=== PATIENT | male | born 1960 | race Caucasian/White ===

== ENCOUNTER 2023-11-23 15:25 | Outpatient (AMB) | payer OTHER, SELFPAY ==
--- NOTE | 2023-11-23 15:36 | A.OFFPC_ITS ---
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 Intake Note: pt is here for physical, denies issues, looking to establish care for medication refills International Operations Manager Required: No Accompanied by: Self / Same As Patient Allergies No Known Allergies Allergy (Verified 11/23/23 15:50) Medication List - Last Reconciled 11/23/23 by MARQUISE Linder amlodipine 10 mg PO DAILY atorvastatin 10 mg PO DAILY tamsulosin 0.4 mg PO DAILY valsartan 80 mg PO DAILY Tobacco use date assessed: 11/23/23 Dental Screening Dental Screen Date: 11/23/23 Did you have a dental visit in the last 12 months?: Yes Did you have a dental problem in the last 6 months where you did not have access to dental care?: No Was dental information given to patient?: Patient has dentist HPI HPI Comments History of Present Illness Details Patient is a 62-year-old male in today to establish care. He is up-to-date with his influenza and COVID booster. Patient is due for colonoscopy but would like to wait on the procedure until after the summer. He has a past medical history significant for BPH, hyperlipidemia and hypertension. He is currently taking amlodipine and valsartan for hypertension. The patient will be sending us his past medical records from [facility]. He has a surgical history of right knee replacement. He has an occupational injury from a work accident 2 years ago where a beam fell on his shoulder tearing his rotator cuff. The patient is being treated by [facility] for this issue, he states he gets occasional left-sided numbness down his arm and headaches, they are conducting an MRI in 5 days. The patient is due for fasting labs, will order. [facility] Medical History (Updated 11/23/23 @ 16:25 by MARQUISE Linder) Benign prostate hyperplasia Hypertension Surgical History (Updated 11/23/23 @ 15:53 by MARQUISE Linder) S/P left rotator cuff repair History of total right knee replacement Family History (Updated 11/23/23 @ 15:55 by MARQUISE Linder) Father No problems noted. Mother No problems noted. Social History (Updated 11/23/23 @ 15:55 by MARQUISE Linder) Housing: House Alcohol intake: current Alcohol intake frequency: a few times a month Alcohol type: beer Comment: 2-3 per week Patient Tobacco Use Status: Never used Tobacco e-Cigarette/Vaping Use: Never Used service: Yes ([employer]) Current occupational status: employed Cognitive needs: No Hearing needs: No Vision needs: Yes Questionnaire PHQ-9 Over the last 2 weeks, how often have you been bothered by any of the following problems? 1. Little interest or pleasure in doing things: not at all 2. Feeling down, depressed, or hopeless: not at all 3. Trouble falling or staying asleep, or sleeping too much: not at all 4. Feeling tired or having little energy: not at all 5. Poor appetite or overeating: not at all 6. Feeling bad about yourself - or that you are a failure or have let yourself or your family down: not at all 7. Trouble concentrating on things, such as reading the newspaper or watching television: not at all 8. Moving or speaking so slowly that other people could have noticed. Or the opposite - being so fidgety or restless that you have been moving around a lot more than usual: not at all 9. Thoughts that you would be better off or of hurting yourself in some way: not at all Total score: 0 Depression Screening Interpretation: Negative Depression Screening Done: Yes 12068 - PHQ-9 Billing: Yes Source: Developed by Drs. Tanmay Lindsay, Mary Glover, Otf Hamilton and colleagues, with an educational kayleigh from [employer]. Thrive Questionnaire Date Thrive assessed: 11/23/23 I am a: Patient What is your living situation today?: I have a steady place to live Within the past 12 months, did the food you bought not last and you didn't have the money to get more?: Never true Within the past 12 months, did you worry whether your food would run out before you got money to buy more?: Never true Do you have trouble paying for medicines?: No Do you have trouble getting transportation to medical appointments?: No Do you have trouble paying your heating and electricity bill?: No Do you have trouble taking care of your child, family member or friend?: No Do you have trouble with day-to-day activities such as bathing, preparing meals, shopping, managing finances, etc.?: No Are you currently unemployed and looking for a job?: No Are you interested in more education?: No Please select the resources that you would like help with: None Currently or been in a relationship where the following occur: no concerns reported THRIVE Score: 0 AUDIT C Alcohol Use Questionnaire (AUDIT-C) 1. How often do you have a drink containing alcohol?: 2-4 times a month 2. How many drinks containing alcohol do you have on a typical day when you are drinking?: 1 or 2 3. How often do you have six or more drinks on one occasion?: Never Total Score: 2 Score Reviewed/Action Taken: Yes TITUS-7 AMB Questionnaire TITUS-7 Date TITUS - 7 assessed: 11/23/23 Feeling nervous, anxious, or on edge: 0 = Not at all Not being able to stop or control worryin = Not at all Worrying too much about different things: 0 = Not at all Trouble relaxin = Not at all Being so restless that it is hard to sit still: 0 = Not at all Becoming easily annoyed or irritable: 0 = Not at all Feeling afraid as if something awful might happen: 0 = Not at all Total TITUS-7 score (0-4 normal; 5-9 mild; 10-14 moderate; 15-21 severe): 0 Source: Developed by Drs. Tanmay Lindsay, Mary Glover, Otf Hamilton and colleagues, with an educational kayleigh from [employer]. TITUS-7 Assessment Billing TITUS-7 Assessment Tool: TITUS-7 Assessment 96789 Review of Systems Const Details: Constitutional : No Weight loss, No Fever, No Chills, No Fatigue, No Malaise ENT/Mouth : No sore throat, No Rhinorrhea Eyes: No Eye Pain, No Swelling, No Redness Cardiovascular : No Chest Pain, No SOB, No Dyspnea on Exertion, No Orthopnea, No Edema, No Palpitations Respiratory : No Cough, No Sputum, No Wheezing Gastrointestinal : No Nausea, No Vomiting, No Diarrhea, No Constipation, No abdominal Pain, No Hematochezia, No Melena Genitourinary : No Dysuria, No Urinary Frequency, No Hematuria, Musculoskeletal :Admits Left shoulder pain. Skin : No Skin Lesions, No rash Neuro : No Weakness, Admits occasional numbness down left arm, No Dizziness, No Headache Psych : No Anxiety/Panic, No Depression Heme/Lymph: No Bruising, No Bleeding,No Lymphadenopathy Endocrine : No Polyuria, No Polydipsia All other systems reviewed and are negative Physical exam (Primary Care) Vital Signs: Last Vital Signs Pulse 72 11/23/23 15:37 BP 132/70 11/23/23 15:37 Pulse Ox 97 11/23/23 15:37 Oxygen Delivery Method Room Air 11/23/23 15:37 Care Plan Goal for BP management: Vital signs reviewed stable. BMI result Body Mass Index 32.9 Tobacco/Smoking Status: Tobacco use Status Tobacco use date assessed 11/23/23 11/23/23 15:43 Patient Tobacco Use Status Never used Tobacco 11/23/23 15:55 e-Cigarette/Vaping Use Never Used 11/23/23 15:55 PHQ-9: PHQ-9 Score PHQ-9: Total score 0 11/23/23 15:46 Depression Screening Interpretation: Negative Thrive Assessment: Date of Thrive Assessment Date Thrive assessed 11/23/23 11/23/23 15:46 Currently or been in a relationship where the following occur: no concerns reported Const General: cooperative and no acute distress Nutritional Appearance: average body habitus Orientation/consciousness: patient oriented x3 Limitations: no limitations HENMT Head: Yes normal to inspection General nose exam: Normal external nose present Neck Neck: Yes normal visual inspection Resp Auscultation: clear to auscultation bilaterally Cardio Rate: regular rate Rhythm: regular rhythm Heart sounds: S1 normal heart sound present and S2 normal heart sound present Peripheral pulses: Peripheral pulses 2+ throughout Neuro General: patient oriented x3 Psych Thought process: Normal thought process present Thought content: Normal thought content present Insight: Good insight present (Psych) Judgement: Good judgement present (Psych) Assessment and Plan Assessment & Plan (1) Hypertension: Comment: Patient is taking valsartan and amlodipine. BP is currently controlled. Code(s): I10 - Essential (primary) hypertension Qualifiers: Hypertension type: primary hypertension Qualified Code(s): I10 - Essential (primary) hypertension Plan Patient will follow-up with physical exam in 2 months. Orders: Orders Comprehensive Met. Panel 11/23/23 Z91.89 - Other specified personal risk factors, not elsewhere classified Lipid Panel 11/23/23 Z13.220 - Encounter for screening for lipoid disorders Vitamin B6 11/23/23 Z13.21 - Encounter for screening for nutritional disorder Vitamin B12 11/23/23 Z13.21 - Encounter for screening for nutritional disorder TSH reflex Free T4 11/23/23 Z13.29 - Encounter for screening for other suspected endocrine disorder Complete Blood Count Auto Diff 11/23/23 Z13.0 - Encounter for screening for diseases of the blood and blood-forming organs and certain disorders involving the immune mechanism PSA,Total (Free>4and<10) 11/23/23 Z12.5 - Encounter for screening for malignant neoplasm of prostate Vitamin D 25-OH (D2 and D3) 11/23/23 Z13.21 - Encounter for screening for nutritional disorder UA CC w/rflx Micro + Cult 11/23/23 Z91.89 - Other specified personal risk factors, not elsewhere classified Coding Level of Care Code New Pt Level 3 (40445) Diagnoses Primary hypertension I10 Hypertension type: primary hypertension Additional Codes TITUS-7 Assessment Billing - TITUS-7 Assessment Tool: TITUS-7 Assessment 07992 ([id number]) Time Spent (min) 30
[2023-11-23 15:37] VITALS: BP 132/70; PULSE 72; O2SAT 97; BMI 32.9
== END 2023-11-23 16:19 | disposition home or self-care (01) ==
PROVIDERS: PCP Internal Medicine; Visit Provider Nurse Practitioner Primary Care
DX: I10 Essential (primary) hypertension (principal)
CPT/HCPCS: 99203

== ENCOUNTER 2024-01-13 13:22 | Outpatient (REF) | payer OTHER, SELFPAY ==
[2024-01-13 16:05] LABS: Appearance Urine Clear; Color Urine Yellow; Glucose Urine UA Negative (Negative); Leukocyte Esterase Urine Negative (Negative); Nitrite Urine Negative (Negative); PH 5.5 (5.0-9.0); Specific Gravity - Urine 1.025 (1.005-1.025); Urine Blood Negative (Negative); Urine Ketones Negative (Negative); Urine Protein Negative (Neg-Trace)
[2024-01-13 16:12] LABS: MANUAL DIFF FLAG NO
[2024-01-13 16:17] LABS: Basophils Absolute Auto 0.1 X10*3/uL (0.0-0.2); Basophils Percent Auto 0.8 % (0-2); Eosinophils Absolute Auto 0.1 X10*3/uL (0.0-0.4); Eosinophils Percent Auto 2.2 % (0-4); Hematocrit 46.1 % (42.0-52.0); Hemoglobin 15.7 g/dl (14.0-18.0); Imm Gran Abs Auto 0.01 X10*3/uL (0.00-0.03); Imm Gran Pct Auto 0.2 % (0.0-0.4); Lymphocytes Absolute Auto 2.2 X10*3/uL (1.2-4.9); Mean Corpuscular HGB Conc 34.1 g/dl (31.0-36.0); Mean Corpuscular Hemoglobin 30.1 pg (27.0-33.0); Mean Corpuscular Volume 88.5 fL (80.0-98.0); Mean Platelet Volume 10.6 fL (9.4-12.4); Monocytes Absolute Auto 0.5 X10*3/uL (0.1-1.2); Monocytes Percent Auto 7.2 % (2-11); Neutrophils Absolute Auto 3.4 x10*3/uL (2.0-8.3); Neutrophils Percent Auto 54.6 % (45-73); Platelet Count 238 X10*3/uL (160-400); Red Blood Count 5.21 X10*6/uL (4.60-5.80); Red Cell Distribution Width 12.5 % (11.0-16.0); White Blood Count 6.3 X10*3/uL (4.8-10.8)
[2024-01-13 16:31] LABS: Alanine Aminotransferase 28 U/L (0-40); Albumin Level 4.7 g/dL (3.5-5.0); Alkaline Phosphatase 69 U/L (39-117); Anion Gap 15 (12-20); Aspartate Amino Transferase 23 U/L (5-37); Blood Urea Nitrogen 12 mg/dL (9-16); Calcium 9.6 mg/dL (8.4-10.2); Carbon Dioxide 26 mmol/L (22-29); Chloride 106 mmol/L (96-108); Cholesterol 169 mg/dL (<200); Estimated Glomerular Filt Rate > 60; Glucose Random 90 mg/dL (60-115); HDL Cholesterol 64 mg/dL (>40); LDL Cholesterol Calculated 87 mg/dL (<100); Sodium 143 mmol/L (135-145); Total Protein 7.8 g/dL (6.5-8.0); Triglycerides 90 mg/dL (<150)
[2024-01-13 16:49] LABS: TSH reflex Free T4 1.92 uIU/mL (0.32-4.0)
[2024-01-13 16:50] LABS: PSA,Total (Free>4and<10) 1.09 ng/mL (0.00-4.00)
[2024-01-13 16:57] LABS: Vitamin B12 510 pg/mL (200-900)
[2024-01-18 13:58] LABS: Vitamin D 25-OH, D2 <4 ng/mL; Vitamin D 25-OH, D3 20 ng/mL; Vitamin D 25-OH, Total 20 ng/mL (30-100)
== END 2024-01-13 13:23 | disposition home or self-care (01) ==
LOC: HO.HMGCLDS 13:22
PROVIDERS: PCP Nurse Practitioner Primary Care; Visit Provider Nurse Practitioner Primary Care
DX: Z12.5 Encounter for screening for malignant neoplasm of prostate (principal); Z13.6 Encounter for screening for cardiovascular disorders; Z13.220 Encounter for screening for lipoid disorders; Z13.21 Encounter for screening for nutritional disorder; Z13.29 Encounter for screening for other suspected endocrine disorder; Z13.0 Encounter for screening for diseases of the blood and blood-forming organs and certain disorders involving the immune mechanism; Z91.89 Other specified personal risk factors, not elsewhere classified
CPT/HCPCS: 36415; 80053; 80061; 81003; 82306; 82607; 84153; 84207; 84443; 85025

== ENCOUNTER 2024-02-03 09:20 | Outpatient (AMB) | payer OTHER, SELFPAY ==
[2024-02-03 09:27] VITALS: BP 130/72; PULSE 86; TEMP 36.8; O2SAT 97; BMI 32.1
--- NOTE | 2024-02-03 09:27 | MHC.OFFWIV ---
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 Patient also reports diffuse chest soreness/discomfort as well as abdominal discomfort with coughing. He denies any shortness of breath. He denies any hemoptysis or sputum purulence. He denies any exertional component to his chest pain and denies any associated shortness of breath, nausea/vomiting, or diaphoresis. [facility] Medical History (Updated 02/03/24 @ 10:12 by RICHARD Read) Benign prostate hyperplasia Hypertension Surgical History (Updated 11/23/23 @ 15:53 by MARQUISE Linder) S/P left rotator cuff repair History of total right knee replacement Family History (Updated 11/23/23 @ 15:55 by MARQUISE Linder) Father No problems noted. Mother No problems noted. Social History (Updated 11/23/23 @ 15:55 by MARQUISE Linder) Housing: House Alcohol intake: current Alcohol intake frequency: a few times a month Alcohol type: beer Comment: 2-3 per week Patient Tobacco Use Status: Never used Tobacco e-Cigarette/Vaping Use: Never Used service: Yes ([employer]) Current occupational status: employed Cognitive needs: No Hearing needs: No Vision needs: Yes Review of Systems Const All systems reviewed & are unremarkable except as noted in HPI and below Reports no additional complaints Eyes Reports no additional complaints ENT Reports no additional complaints Card Reports no additional complaints Resp Reports no additional complaints GI Reports no additional complaints Reports no additional complaints Musc Reports no additional complaints Skin/Breast Reports system reviewed and no additional complaints, except as documented Neuro Reports no additional complaints Psych Reports no additional complaints Endo Reports no additional complaints Herb/Lymph Reports no additional complaints Aller/Immun Reports no additional complaints Physical Exam Vital Signs: Last Vital Signs Temp 98.3 F 02/03/24 09:27 Pulse 86 02/03/24 09:27 BP 130/72 02/03/24 09:27 Pulse Ox 97 02/03/24 09:27 Oxygen Delivery Method Room Air 02/03/24 09:27 BMI result Body Mass Index 32.1 Const Other: Vital signs reviewed. Constitutional: Non-toxic appearing. No acute distress. Well-developed and well-nourished. HEENT: Normocephalic and atraumatic. Skin: Warm and dry. No rashes or lesions noted. Neck: Full and painless range of motion. No cervical lymphadenopathy. Cardio: Regular rate and rhythm. No murmurs, gallops, or rubs. No lower extremity edema. No JVD. Pulmonary: No respiratory distress. No accessory muscle usage. Clear to auscultation bilaterally without wheezing, crackles, or rhonchi. Diffuse chest wall tenderness to palpation. Gastrointestinal: Soft, nontender, and nondistended in all 4 quadrants. Musculoskeletal: Normal range of motion in joints throughout the body. No deformity or other signs of injury. Neuro: Alert and oriented x4. Cranial nerves 2-12 grossly intact. No focal deficits appreciated. Psych: Normal mood and affect. Assessment & Plan Assessment & Plan (1) Cough: Code(s): R05.9 - Cough, unspecified Qualifiers: Cough type: acute Qualified Code(s): R05.1 - Acute cough (2) URI (upper respiratory infection): Code(s): J06.9 - Acute upper respiratory infection, unspecified Qualifiers: URI type: unspecified viral URI Qualified Code(s): J06.9 - Acute upper respiratory infection, unspecified Plan This is a 63-year-old male who presented to the office complaining of viral URI symptoms including nasal congestion/rhinorrhea, low-grade fever/chills, fatigue, myalgias/arthralgias, and a productive cough with sputum production for the past 3 days. On physical examination, his lungs are clear to auscultation bilaterally without wheezing/crackles/rhonchi. However, given reports of productive cough as well as fevers, I checked a chest x-ray, which was negative for acute cardiopulmonary process on my read. History physical most consistent with a viral upper respiratory tract infection possibly influenza A. Recommended symptomatic management including rest, increased fluids, advil/tylenol for pain/fever, and over the counter throat lozenges/decongestants. Patient was also given a prescription for p.o. benzonatate 200 mg 3 times daily as needed for cough. Patient advised to follow up here or go to the emergency room for worsening/persistent symptoms. Patient verbalized understanding and is agreeable with the plan. Orders: Orders XR chest 2V Today R05.9 - Cough, unspecified SARS-CoV2/FLU/RSV Today R09.89 - Other specified symptoms and signs involving the circulatory and respiratory systems Medications: New benzonatate 200 mg PO TID PRN 14 caps 0RF cough Coding Level of Care Code Est Pt Level 3 (73538) Diagnoses Acute cough R05.1 Cough type: acute Viral upper respiratory tract infection J06.9 URI type: unspecified viral URI
== END 2024-02-03 14:10 | disposition home or self-care (01) ==
PROVIDERS: PCP Nurse Practitioner Primary Care; Visit Provider Physician Assistant Medical
DX: R05.1 Acute cough (principal); J06.9 Acute upper respiratory infection, unspecified
CPT/HCPCS: 99499

== ENCOUNTER 2024-02-03 09:48 | Outpatient (REF) | payer OTHER, SELFPAY ==
--- NOTE | ~2024-02-03 | XR_ITS ---
EXAMINATION: XR CHEST CLINICAL INFORMATION: Cough unspecified. COMPARISON: None available. TECHNIQUE: 3 views of the thoracic spine. FINDINGS: Moderate degenerative changes in the thoracic spine. No gross pleural effusion. Lung volumes are low. There is no gross pneumothorax. Heart size is normal. Mild left basilar streaky opacities likely represent atelectasis/scar, although an infectious/inflammatory process could also be considered in the appropriate clinical setting. Low lung volumes. XR/XR chest 2V IMPRESSION: Mild left basilar streaky opacities likely represent atelectasis/scar, although an infectious/inflammatory process could also be considered in the appropriate clinical setting. Low lung volumes.
[2024-02-03 14:24] LABS: Influenza A PCR POSITIVE (Negative); Influenza B PCR NEGATIVE (Negative); Resp Syncy Virus RNA Qual PCR NEGATIVE (Negative); SARS COV2 PCR INHOUSE NEGATIVE (Negative)
== END 2024-02-03 09:49 | disposition home or self-care (01) ==
LOC: HO.HMGCX 09:48
PROVIDERS: PCP Nurse Practitioner Primary Care; Visit Provider Physician Assistant Medical
DX: R05.9 Cough, unspecified (principal); R09.89 Other specified symptoms and signs involving the circulatory and respiratory systems
CPT/HCPCS: 0241U; 71046

== ENCOUNTER 2024-03-30 14:44 | Outpatient (AMB) | payer OTHER, SELFPAY ==
--- NOTE | 2024-03-30 14:56 | MHC.PC.OV ---
Vital Signs 03/30/24 15:00 Height 5 ft 10 in Weight 226 lb BMI 32.4 BP 120/76 Blood Pressure Location Rt brachial Position Sitting Pulse 83 Pulse Source Pulse Oximeter Pulse Oximetry (%) 97 Oxygen Delivery Method Room Air Intake Visit Reasons: PE Intake Note: pt here for annual PE. Last colonoscopy unknown but more than 5 years Allergies No Known Allergies Allergy (Verified 03/30/24 15:32) Medication List - Last Reconciled 03/30/24 by MARQUISE Linder amlodipine 10 mg PO DAILY atorvastatin 10 mg PO DAILY cyclobenzaprine 10 mg PO BEDTIME PRN tamsulosin 0.4 mg PO DAILY valsartan 80 mg PO DAILY Tobacco use date assessed: 03/30/24 Dental Screening Dental Screen Date: 03/30/24 Did you have a dental visit in the last 12 months?: Yes Did you have a dental problem in the last 6 months where you did not have access to dental care?: No Was dental information given to patient?: Patient has dentist HPI HPI Comments History of Present Illness Details Patient is a 63-year-old male here for physical exam. Patient Tdap completed 2020 Patient declining shingles vaccine. Does not get yearly influenza or COVID vaccine. Patient is declining colonoscopy at this time, would like to revisit in 6 months. Patient has past medical history significant for right knee replacement. Hyperlipidemia controlled with atorvastatin, hypertension controlled with amlodipine and valsartan. Patient has BPH, utilizing tamsulosin 0.4 with good effect. Patient has ongoing issue with workmen comp, 1 year prior had 400 lb being fall on his left shoulder tearing is rotator cuff, causing cervical spine damage. Patient is being treated by [facility]. Has utilize meloxicam, stop due to gastric irritation reflux. Patient is waiting for insurance clearance for cortisone injections. Patient states he can feel the left side of his neck tense up, will offer cyclobenzaprine to be taken p.r.n. at night. [facility] Medical History (Updated 03/30/24 @ 16:12 by MARQUISE Linder) Benign prostate hyperplasia Hypertension Surgical History S/P left rotator cuff repair History of total right knee replacement Family History Father No problems noted. Mother No problems noted. Social History Housing: House Alcohol intake: current Alcohol intake frequency: a few times a month Alcohol type: beer Comment: 2-3 per week Patient Tobacco Use Status: Never used Tobacco e-Cigarette/Vaping Use: Never Used service: Yes ([employer]) Current occupational status: employed Cognitive needs: No Hearing needs: No Vision needs: Yes Questionnaire Thrive Questionnaire Date Thrive assessed: 11/23/23 Currently or been in a relationship where the following occur: no concerns reported THRIVE Score: 0 AUDIT C Alcohol Use Questionnaire (AUDIT-C) 1. How often do you have a drink containing alcohol?: 2-4 times a month 2. How many drinks containing alcohol do you have on a typical day when you are drinking?: 1 or 2 3. How often do you have six or more drinks on one occasion?: Never Total Score: 2 Score Reviewed/Action Taken: Yes TITUS-7 AMB Questionnaire TITUS-7 Date TITUS - 7 assessed: 11/23/23 Source: Developed by Drs. Tanmay Lindsay, Mary Glover, Otf Hamilton and colleagues, with an educational kayleigh from [employer]. Review of Systems Const All systems reviewed & are unremarkable except as noted in HPI and below Physical exam (Primary Care) Vital Signs: Last Vital Signs Pulse 83 03/30/24 15:00 BP 120/76 03/30/24 15:00 Pulse Ox 97 03/30/24 15:00 Oxygen Delivery Method Room Air 03/30/24 15:00 Care Plan Goal for BP management: Blood pressure is controlled. BMI result Body Mass Index 32.4 Tobacco/Smoking Status: Tobacco use Status Tobacco use date assessed 03/30/24 03/30/24 14:58 Patient Tobacco Use Status Never used Tobacco 03/30/24 14:58 e-Cigarette/Vaping Use Never Used 03/30/24 14:58 Thrive Assessment: Date of Thrive Assessment Date Thrive assessed 11/23/23 03/30/24 14:58 Currently or been in a relationship where the following occur: no concerns reported Advance Care Planning discussion: Completed/Scanned Date of discussion: 03/30/24 Forms completed: Health Care Proxy Time spent: 1-15 minutes, not on file Actual minutes spent: 16 Const General: cooperative and no acute distress Orientation/consciousness: patient oriented x3 Limitations: no limitations HENMT Head: Yes normal to inspection and Yes normocephalic Ears: hearing grossly normal bilaterally and TM's normal bilaterally General nose exam: Normal external nose present Face and sinus: Yes normal facial exam Eyes Other: Utilizes collective eye wear. Pupils: Equal, round and reactive pupils present EOM: EOMs intact bilaterally Direct Ophthalmoscopy: normal light reflex and no photophobia Neck Neck: Yes normal visual inspection and Yes no lymphadenopathy Carotids: normal carotid upstroke Lymphatic: no lymphadenopathy noted Chest Chest palpation & inspection: normal inspection of the chest Resp Effort & Inspection: normal respiratory effort Auscultation: clear to auscultation bilaterally Cardio Jugular venous distension: no JVD Rate: regular rate Rhythm: regular rhythm Heart sounds: S1 normal heart sound present and S2 normal heart sound present Peripheral pulses: Peripheral pulses 2+ throughout GI Inspection: Yes normal to inspection Palpation (GI): Soft to palpation and nontender Rectal Exam - Male: Yes deferred General: Yes no CVA tenderness Back/Spine/Pelvis Back: no CVA tenderness Cervical Spine: No cervical ROM normal, cervical muscular tenderness and No step off deformity Thoracic/Lumbar Spine: thoracic and lumbar spine normal to inspection Sacrum: no ecchymosis and no erythema Skin General skin exam: no rashes or lesions noted Neuro General: patient oriented x3 Cranial nerves: Yes Equal, round and reactive pupils present Cognition (Neuro): normal cognition Gait exam (Neuro): Normal gait present Romberg Test: Negative Extrem General: Yes normal to inspection Psych Thought content: Normal thought content present Insight: Good insight present (Psych) Judgement: Good judgement present (Psych) Results Reviewed Results Reviewed: Sodium 143 135-145 mmol/L Potassium 4.0 3.3-5.1 mmol/L CL 106 96-108 mmol/L CO2 26 22-29 mmol/L Gap 15 12-20 BUN 12 9-16 mg/dL Creat 1.11 0.5-1.4 mg/dL EGFR > 60 NOTE: For -[place] individuals, multiply the result by 1.210. Chronic Kidney Disease: Estimated GFR < 60 mL/min/1.73m2 Severe Kidney Disease: Estimated GFR < 15 mL/min/1.73m2 Glucose, Random 90 60-115 mg/dL CA 9.6 8.4-10.2 mg/dL Total Bili 1.0 0.0-1.0 mg/dL AST (GOT) 23 5-37 U/L ALT (GPT) 28 0-40 U/L Protein, Total 7.8 6.5-8.0 g/dL Alb 4.7 3.5-5.0 g/dL Triglyceride 90 <150 mg/dL Desirable Triglyceride: less than 150 mg/dL Borderline High Triglyceride 150-199 mg/dL High Triglyceride: 200-499 mg/dL Very High Triglyceride: greater than or equal to 5OO mg/dL Cholesterol 169 <200 mg/dL Desirable Cholesterol: less than 200 mg/dL Borderline High Cholesterol: 200-239 mg/dL High Cholesterol: greater than 239 mg/dL LDL Calculated 87 <100 mg/dL Desirable LDL: less than 100 mg/dL Near Optimal/Above Optimal LDL: 110-129 mg/dL Borderline High LDL: 130-159 mg/dL High LDL: 160-189 mg/dL Very High LDL: greater than or equal to 190 mg/dL HDL 64 >40 mg/dL Desirable HDL: greater than 40 mg/dL Note: This HDL assay may give artificially low results in patients with liver disease. Alk Phos 69 39-117 U/L TSH 1.92 0.32-4.0 uIU/mL Assessment and Plan Assessment & Plan (1) Encounter for physical examination: Comment: Will redraw labs CBC, CMP, vitamin-D. Patient is up-to-date with PSA. Patient is up-to-date with Tdap. Patient is currently declining colonoscopy. Patient declining therapy. Code(s): Z00.00 - Encounter for general adult medical examination without abnormal findings (2) Hypertension: Comment: Patient is taking valsartan and amlodipine. BP is currently controlled. Code(s): I10 - Essential (primary) hypertension Qualifiers: Hypertension type: primary hypertension Qualified Code(s): I10 - Essential (primary) hypertension (3) Benign prostate hyperplasia: Comment: Control with tamsulosin. Recent PSA normal Code(s): N40.0 - Benign prostatic hyperplasia without lower urinary tract symptoms Qualifiers: Lower urinary tract symptom presence: unspecified whether lower urinary tract symptoms present Qualified Code(s): N40.0 - Benign prostatic hyperplasia without lower urinary tract symptoms (4) Cervical pain (neck): Comment: Longstanding history of cervical pain following accident at work. Patient being treated at [facility]. Awaiting insurance approval for cortisone shots. Will give cyclobenzaprine 10 mg p.o. p.r.n. at bedtime. Code(s): M54.2 - Cervicalgia Plan: Draw labs. Plan Follow-up in 6 months Medications: New cyclobenzaprine 10 mg PO BEDTIME PRN 30 tabs 0RF muscle spasm valsartan 80 mg PO DAILY 90 tabs 1RF tamsulosin 0.4 mg PO DAILY 90 caps 1RF atorvastatin 10 mg PO DAILY 90 tabs 1RF amlodipine 10 mg PO DAILY 90 tabs 1RF Coding Level of Care Code Est Pt Prev Care 40-64y(49627) Diagnoses Encounter for physical examination Z00.00 Primary hypertension I10 Hypertension type: primary hypertension Benign prostatic hyperplasia, unspecified whether lower urinary tract symptoms present N40.0 Lower urinary tract symptom presence: unspecified whether lower urinary tract symptoms present Cervical pain (neck) M54.2 Additional Codes Vital Signs *Quality* - Advance Care Planning discussion: Completed/Scanned ([id number]) Vital Signs *Quality* - Time spent: 1-15 minutes, not on file ([id number]) Time Spent (min) 41
[2024-03-30 15:00] VITALS: BP 120/76; PULSE 83; O2SAT 97; BMI 32.4
== END 2024-03-30 16:04 | disposition home or self-care (01) ==
PROVIDERS: PCP Nurse Practitioner Primary Care; Visit Provider Nurse Practitioner Primary Care
DX: Z00.00 Encounter for general adult medical examination without abnormal findings (principal); I10 Essential (primary) hypertension; N40.0 Benign prostatic hyperplasia without lower urinary tract symptoms; M54.2 Cervicalgia
CPT/HCPCS: 1123F; 1124F; 99396

== ENCOUNTER 2025-01-23 14:57 | Outpatient (AMB) | payer OTHER, SELFPAY ==
[2025-01-23 15:07] VITALS: BP 132/70; PULSE 82; O2SAT 97; BMI 33.7
--- NOTE | 2025-01-23 15:07 | A.OFFPC_ITS ---
Vital Signs 01/23/25 15:07 Height 5 ft 10 in Weight 235 lb BMI 33.7 BP 132/70 Blood Pressure Location Lt brachial Position Sitting Pulse 82 Pulse Source Pulse Oximeter Pulse Oximetry (%) 97 Oxygen Delivery Method Room Air Intake Visit Reasons: Transfer care from [facility] from 10/30 Allergies No Known Allergies Allergy (Verified 01/23/25 16:19) Medication List - Last Reconciled 01/23/25 by SUBHASH AbarcaP- amlodipine 10 mg PO DAILY atorvastatin 10 mg PO DAILY cyclobenzaprine 10 mg PO BEDTIME PRN duloxetine mg PO DAILY pregabalin mg PO 3XD tamsulosin 0.4 mg PO DAILY valsartan 80 mg PO DAILY Tobacco use date assessed: 01/23/25 Fall risk assessment: No Falls in past year Last assessed Fall Risk: 01/23/25 Dental Screening Dental Screen Date: 01/23/25 Did you have a dental visit in the last 12 months?: Yes Did you have a dental problem in the last 6 months where you did not have access to dental care?: No Was dental information given to patient?: Patient has dentist HPI Transfer care from [facility] from 10/30 HPI Details Chief Complaint The patient is here for hypertension management. History of Present Illness The patient is a 64-year-old male presenting with Essential Hypertension. His hypertension has been consistently well-managed, with stable blood pressure readings and no need for medication adjustments at this time. He acknowledges being overdue for routine colon cancer screening but is delaying it due to current involvement in a Worker?s Compensation case for an injury to his left shoulder/cervical spine,, where he is under the care of a neurosurgeon. The patient actively denies any symptoms of chest pain, dyspnea, altered bowel function, gastrointestinal discomfort, or urinary issues. Social History - Currently involved in a prolonged Work man?s Compensation case due to a left shoulder injury caused by a plank. Health Maintenance - Patient acknowledges the need for a co bob cancer screening but is deferring at this time. Review of Systems - Cardiovascular: Denies chest pain or d iscomfort. - Respiratory: Denies shortness of breat h. - Gastrointestinal: Denies abdominal alonzo n, blood in stool, or diarrhea. - Genitourinary: Denies urinary problems . Physical Exam General: Cooperative, healthy appearing, comfortable, no acute distress and well developed, obese Orientation: Patient oriented x3 Limitations: No limitations Head: Normal to inspection Ears: Hearing grossly normal bilaterally Nose: Normal external nose present Face and sinus: Normal facial exam Eyes: Appearance normal, both eyes and all related structures Neck: Normal visual inspection and Yes full ROM Respiratory: Normal respiratory effort and able to speak in complete sentences. Clear to auscultation bilaterally Cardiovascular: Regular rate and rhythm. Normal S1 and S2 GI: Normal to inspection. Soft to palpation and nontender Skin: No rashes or lesions noted Neuro: Patient oriented x3 Extremities: Normal to inspection, Results Plan The patient's Essential Hypertension is currently stable, with no changes required to his medication regimen or refills. Colon cancer screening is deferred due to his ongoing Worker?s Compensation case and associated neurosurgical evaluation for the left shoulder injury. Baseline laboratory tests, including PSA, will be obtained. Follow-up will occur in six months to monitor hypertension and address any further health concerns. Discussion Notes During the visit, I discussed with the patient the management and stability of his Essential Hypertension. We reviewed his current medication regimen, which does not require adjustments or refills. We talked about the importance of routine colon cancer screening; however, given his ongoing Worker?s Compensation case and neurosurgical consultations, he chose to defer this. I emphasized the necessity of future health screenings when his circumstances allow. We agreed on obtaining baseline labs, including a PSA, to complete his health profile, with a six-month follow-up planned for ongoing monitoring and evaluation. Patient Instructions - Continue with current hypertension med ication as presently directed. - Monitor for any new symptoms or change s in health and report if they occur. - Complete lab work as ordered, includin g PSA. - Follow up in six months for routine re evaluation. - Consider scheduling colon screening af ter resolution of current case. [facility] Medical History Benign prostate hyperplasia Hypertension Surgical History S/P left rotator cuff repair History of total right knee replacement Family History Father No problems noted. Mother No problems noted. Social History Housing: House Alcohol intake: current Alcohol intake frequency: a few times a month Alcohol type: beer Comment: 2-3 per week Patient Tobacco Use Status: Never used Tobacco e-Cigarette/Vaping Use: Never Used service: Yes ([email or web address]) Current occupational status: employed and unemployed Cognitive needs: No Hearing needs: No Vision needs: Yes Questionnaire PHQ-9 Over the last 2 weeks, how often have you been bothered by any of the following problems? 1. Little interest or pleasure in doing things: nearly every day 2. Feeling down, depressed, or hopeless: nearly every day 3. Trouble falling or staying asleep, or sleeping too much: nearly every day 4. Feeling tired or having little energy: nearly every day 5. Poor appetite or overeating: not at all 6. Feeling bad about yourself - or that you are a failure or have let yourself or your family down: not at all 7. Trouble concentrating on things, such as reading the newspaper or watching television: not at all 8. Moving or speaking so slowly that other people could have noticed. Or the opposite - being so fidgety or restless that you have been moving around a lot more than usual: not at all 9. Thoughts that you would be better off or of hurting yourself in some way: not at all Total score: 12 Depression Screening Interpretation: Positive (denies any si or Hi, declined meds/therapy) Depression Screening Follow-up: Existing condition and Declines treatment Depression Screening Done: Yes 56143 - PHQ-9 Billing: Yes Source: Developed by Drs. Tanmay Lindsay, Mary Glover, Otf Hamilton and colleagues, with an educational kayleigh from [employer]. Thrive Questionnaire Date Thrive assessed: 01/23/25 I am a: Patient What is your living situation today?: I have a steady place to live Within the past 12 months, did the food you bought not last and you didn't have the money to get more?: Never true Within the past 12 months, did you worry whether your food would run out before you got money to buy more?: Never true Do you have trouble paying for medicines?: No Do you have trouble getting transportation to medical appointments?: No Do you have trouble paying your heating and electricity bill?: No Do you have trouble taking care of your child, family member or friend?: No Do you have trouble with day-to-day activities such as bathing, preparing meals, shopping, managing finances, etc.?: No Are you currently unemployed and looking for a job?: No Are you interested in more education?: No Please select the resources that you would like help with: None Currently or been in a relationship where the following occur: No concerns reported THRIVE Score: 0 AUDIT C Alcohol Use Questionnaire (AUDIT-C) 1. How often do you have a drink containing alcohol?: 2-4 times a month 2. How many drinks containing alcohol do you have on a typical day when you are drinking?: 1 or 2 3. How often do you have six or more drinks on one occasion?: Never Total Score: 2 Score Reviewed/Action Taken: Yes TITSU-7 AMB Questionnaire TITUS-7 Date TITUS - 7 assessed: 01/23/25 Feeling nervous, anxious, or on edge: 1 = Several days Not being able to stop or control worryin = Not at all Worrying too much about different things: 0 = Not at all Trouble relaxin = Several days Being so restless that it is hard to sit still: 0 = Not at all Becoming easily annoyed or irritable: 2 = More than half the days Feeling afraid as if something awful might happen: 0 = Not at all Total TITUS-7 score (0-4 normal; 5-9 mild; 10-14 moderate; 15-21 severe): 4 Source: Developed by Drs. Tanmay Lindsay, Mary Glover, Otf Hamilton and colleagues, with an educational kayleigh from [employer]. TITUS-7 Assessment Billing TITUS-7 Assessment Tool: TITUS-7 Assessment 27415 Physical exam (Primary Care) Vital Signs: Last Vital Signs Pulse 82 01/23/25 15:07 BP 132/70 01/23/25 15:07 Pulse Ox 97 01/23/25 15:07 Oxygen Delivery Method Room Air 01/23/25 15:07 BMI result Body Mass Index 33.7 Tobacco/Smoking Status: Tobacco use Status Tobacco use date assessed 01/23/25 01/23/25 15:09 Patient Tobacco Use Status Never used Tobacco 01/23/25 15:09 e-Cigarette/Vaping Use Never Used 01/23/25 15:09 PHQ-9: PHQ-9 Score PHQ-9: Total score 12 01/23/25 15:42 Depression Screening Interpretation: Positive (denies any si or Hi, declined meds/therapy) Depression Screening Follow-up: Existing condition and Declines treatment Thrive Assessment: Date of Thrive Assessment Date Thrive assessed 01/23/25 01/23/25 15:09 Currently or been in a relationship where the following occur: No concerns reported Coding Level of Care Code New Pt Level 3 (22492) Diagnoses Primary hypertension I10 Hypertension type: primary hypertension Benign prostatic hyperplasia, unspecified whether lower urinary tract symptoms present N40.0 Lower urinary tract symptom presence: unspecified whether lower urinary tract symptoms present Additional Codes TITUS-7 Assessment Billing - TITUS-7 Assessment Tool: TITUS-7 Assessment 20721 ([id number]) PHQ-9 - 01740 - PHQ-9 Billing: Yes ([id number]) Assessment & Plan Assessment & Plan (1) Hypertension: Comment: Patient is taking valsartan and amlodipine. BP is currently controlled. Code(s): I10 - Essential (primary) hypertension Category: Medical Qualifiers: Hypertension type: primary hypertension Qualified Code(s): I10 - Essential (primary) hypertension (2) Benign prostate hyperplasia: Comment: Control with tamsulosin. PSA ordered Code(s): N40.0 - Benign prostatic hyperplasia without lower urinary tract symptoms Category: Medical Qualifiers: Lower urinary tract symptom presence: unspecified whether lower urinary tract symptoms present Qualified Code(s): N40.0 - Benign prostatic hyperplasia without lower urinary tract symptoms Plan . Orders: Orders TSH reflex Free T4 Today I10 - Essential (primary) hypertension UA CC w/rflx Micro + Cult Today I10 - Essential (primary) hypertension Lipid Panel Today I10 - Essential (primary) hypertension Complete Blood Count Auto Diff Today I10 - Essential (primary) hypertension Comprehensive [place]. Panel Fast Today I10 - Essential (primary) hypertension Prostate Specific Antigen Scr Today N40.0 - Benign prostatic hyperplasia without lower urinary tract symptoms
--- OUTSIDE RECORDS SUMMARY | 2025-01-23 17:31 | XMS_ITS ---
Author Name [facility] Organization Unknown History of Medication Use Medication Directions Dispensed Refills Start Date End Date Stat us cyclobenzaprine (FLEXERIL) 10 MG tablet TAKE 1 TABLET ORALLY BEDTIME NEEDED FOR MUSCLE SPASM 10/10/2024 active pregabalin (LYRICA) 50 MG capsule Take 1 capsule (50 mg total) by mouth 3 (three) times a day as needed (neck and arm pain). 11/05/2024 active atorvastatin (LIPITOR) 10 MG tablet Take 10 mg by mouth. 06/27/2024 active diclofenac enteric coated (VOLTAREN) 75 MG EC tablet 1 tablet by Mouth/Oral Cavity route every 12 hours. 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
--- OUTSIDE RECORDS SUMMARY | 2025-01-23 17:31 | XMS_ITS | Encounter Summary ---
Author Organization [facility] Address [address] [place] [address] Care Team Providers Care Veterinary Assistant Technician Name Role Phone Unavailable Primary Care Provider Unavailabl e Encounter Details Date Type Department Care Team (Late st Contact Info) Description 08/14/2024 Scanned Document [facility] Physicians Department of Physiatry [place] [address] [place] [id number] Carol Ann Sarmiento MD [address] [place] [address] Social History Tobacco Use Types Packs/Day Years Used Date Smoking Tobacco: Never Assessed Sex and Gender Information Value Date Recorded Sex Assigned at Male 07/31/2024 1:36 PM EDT Gender Identity Male 07/31/2024 1:36 PM EDT Sexual Orientation Heterosexual (straight) 07/31 1:36 PM EDT documented as of this encounter Plan of Treatment Not on file documented as of this encounter Visit Diagnoses Not on filedocumented in this encounter
--- OUTSIDE RECORDS SUMMARY | 2025-01-23 17:31 | XMS_ITS | Encounter Summary ---
Author Organization [facility] Address [address] [place] [address] Care Team Providers Care Assembler Skyl[employer] Name Role Phone Unavailable Primary Care Provider Unavailabl e Encounter Details Date Type Department Care Team (Late st Contact Info) Description 07/31/2024 Scanned Document [facility] Physicians Department of Physiatry [place] [address] [place] [id number] Carol Ann Sarmiento MD [address] [place] [address] Social History Tobacco Use Types Packs/Day Years [...]
--- OUTSIDE RECORDS SUMMARY | 2025-01-23 17:31 | XMS_ITS | Clinical Summary ---
Author Organization [facility] Address [address] [place] [address] Care Team Providers Care Welt Sole Layer Name Role Phone Unavailable Primary Care Provider Unavailabl e Allergies No known active allergies Medications Medication Sig Dispensed Refills Start Date End Date Status amLODIPine (NORVASC) 10 MG tablet Take 10 mg by mouth. 06/27/2024 Active atorvastatin (LIPITOR) 10 MG tablet Take 10 mg by mouth. 06/27/2024 Active diclofenac enteric coated (VOLTAREN) 75 MG EC tablet 1 tablet by Mouth/Oral Cavity route every 12 hours. 07/05/2024 Active tamsulosin (FLOMAX) 0.4 MG capsule Take by mouth. 06/27/2024 Active valsartan (DIOVAN) 80 MG tablet Take 80 mg by mouth. 06/27/2024 Active DULoxetine (CYMBALTA) 30 MG capsuleIndications:B ulge of cervical disc without myelopathy TAKE 1 CAPSULE BY MOUTH NIGHTLY. 90 capsule 1 09/19/2024 Active cyclobenzaprine (FLEXERIL) 10 MG tablet TAKE 1 TABLET ORALLY BEDTIME NEEDED FOR MUSCLE SPASM 10/10/2024 Active pregabalin (LYRICA) 50 MG capsuleIndications:N emmy sprain, sequela,Bulge of cervical disc without myelopathy Take 1 capsule (50 mg total) by mouth 3 (three) times a day as needed (neck and arm pain). 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; Radiculitis of left cervical region from Last 3 Months Family History Medical History Relation Name Comments Heart disease Father Relation Name Status Comments Father Social History Tobacco Use Types Packs/Day Years Used Date Smoking Tobacco: Never Smokeless Tobacco: Never Tobacco Cessation:Counseling Given: Not Answered Alcohol Use Standard Drinks/Week Comments Yes 0 (1 standard drink = 0.6 oz pur e alcohol) social Sex and Gender Information Value Date Recorded Sex Assigned at Male 07/31/2024 1:36 PM EDT Gender Identity Male 07/31/2024 1:36 PM EDT Sexual Orientation Heterosexual (straight) 07/31 1:36 PM EDT Last Filed Vital Signs Vital Sign Reading Time Taken Comments Blood Pressure 160/105 11/05/2024 8:44 AM EST Pulse 73 11/05/2024 8:44 AM EST Temperature - - Respiratory Rate - - Oxygen Saturation 98% 11/05/2024 8:44 AM EST Inhaled Oxygen Concentration - - Weight - - Height - - Body Mass Index - - Plan of Treatment Health Maintenance Due Date Last Done Comments Hepatitis C Virus Screening 1960 HIV Screening 1973 DTaP/Tdap/Td Vaccines (1 - Tdap) 1979 Colonoscopy 2005 Pneumococcal Vaccines 50+ (1 of 1 - PCV) 2010 Zoster (Shingles) Vaccine (1 of 2) 2010 Influenza Vaccine 05/24/2024 COVID-19 Vaccine ( - 2023-2 5 season) 2024 RSV Vaccine 60 years and old er and Patients (1 - 1-dose 75+ series) 2035 Hepatitis B Vaccines Aged Out No long er eligible based on patient's age to complete this topic [facility]ly [facility] [place] [address] [employer] Workers [employer] Employer [id number] [place] [address]
--- OUTSIDE RECORDS SUMMARY | 2025-01-23 17:31 | XMS_ITS | Encounter Summary ---
Author Organization [facility] Address [address] [place] [address] Care Team Providers Care Collar Setter Name Role Phone Unavailable Primary Care Provider Unavailabl e Encounter Details Date Type Department Care Team (Late st Contact Info) Description 11/08/2024 Scanned Document [facility] Department of Physiatry [place] [address] [place] [phone] Provider, Generic Social History Tobacco Use Types Packs/Day Years Used Date Smoking Tobacco: Never Smokeless Tobacco: Never Alcohol Use Standard Drinks/Week Comments Yes 0 [...]
== END 2025-01-23 16:41 | disposition home or self-care (01) ==
LOC: HO.HMCC 14:58
PROVIDERS: PCP Nurse Practitioner Primary Care; Visit Provider Nurse Practitioner Family
DX: I10 Essential (primary) hypertension (principal); N40.0 Benign prostatic hyperplasia without lower urinary tract symptoms

== ENCOUNTER → 2025-01-23 14:57 | Outpatient (BNVA) | payer OTHER, SELFPAY | PROVIDERS: PCP Nurse Practitioner Primary Care; Visit Provider Nurse Practitioner Family | DX: I10 Essential (primary) hypertension (principal); N40.0 Benign prostatic hyperplasia without lower urinary tract symptoms; Z79.899 Other long term (current) drug therapy | CPT/HCPCS: 96127 ==

== ENCOUNTER 2025-04-11 09:51 | Outpatient (REF) | payer OTHER, SELFPAY ==
--- OUTSIDE RECORDS SUMMARY | 2025-04-11 10:51 | XMS_ITS | Encounter Summary ---
Author Organization [facility] Address [address] [place] [address] Care Team Providers Care Administrative Library Assistant Name Role Phone Unavailable Primary Care Provider Unavailabl e Encounter Details Date Type Department Care Team (Late st Contact Info) Description 11/08/2024 Scanned Document [facility] Department of Physiatry [place] [address] [place] [phone] Provider, Generic Social History Tobacco Use Types Packs/Day Years Used Date Smoking Tobacco: Never Smokeless Tobacco: Never Alcohol Use Standard Drinks/Week Comments Yes 0 (1 standard drink = 0.6 oz pur e alcohol) social Sex and Gender Information Value Date Recorded Sex Assigned at Male 07/31/2024 1:36 PM EDT Legal Sex Male 1:35 PM EDT Gender Identity Male 07/31/2024 1:36 PM EDT Sexual Orientation Heterosexual (straight) 07/31 1:36 PM EDT documented as of this encounter Plan of Treatment Not on file documented as of this encounter Visit Diagnoses Not on filedocumented in this encounter
[2025-04-11 13:02] LABS: MANUAL DIFF FLAG NO
[2025-04-11 13:04] LABS: Appearance Urine Clear; Color Urine Yellow; Glucose Urine UA Negative (Negative); Leukocyte Esterase Urine Trace (Negative); Nitrite Urine Negative (Negative); Specific Gravity - Urine 1.025 (1.005-1.025); UMIC TRIGGER UACC YES; Urine Blood Negative (Negative); Urine Ketones Trace mg/dL (Negative); Urine Protein Negative (Neg-Trace)
[2025-04-11 13:06] LABS: Basophils Absolute Auto 0.1 X10*3/uL (0.0-0.2); Basophils Percent Auto 0.9 % (0-2); Eosinophils Absolute Auto 0.1 X10*3/uL (0.0-0.4); Hematocrit 44.1 % (42.0-52.0); Hemoglobin 15.3 g/dl (14.0-18.0); Imm Gran Abs Auto 0.02 X10*3/uL (0.00-0.03); Imm Gran Pct Auto 0.4 % (0.0-0.4); Lymphocytes Absolute Auto 1.7 X10*3/uL (1.2-4.9); Lymphocytes Percent Auto 30.3 % (20-40); Mean Corpuscular HGB Conc 34.7 g/dl (31.0-36.0); Mean Corpuscular Volume 86.5 fL (80.0-98.0); Mean Platelet Volume 10.9 fL (9.4-12.4); Monocytes Absolute Auto 0.4 X10*3/uL (0.1-1.2); Monocytes Percent Auto 7.4 % (2-11); Neutrophils Absolute Auto 3.3 x10*3/uL (2.0-8.3); Platelet Count 238 X10*3/uL (160-400); Red Cell Distribution Width 12.6 % (11.0-16.0); White Blood Count 5.6 X10*3/uL (4.8-10.8)
[2025-04-11 13:08] LABS: Bacteria Urine None Seen (None Seen); Hyaline Casts Urine 0-2 /LPF (0-2); RBC Urine 0-2 /HPF (0-2); Squamous Epithelial Cell Urine 0-2 /HPF (0-2); UACC Culture Trigger YES
[2025-04-11 13:37] LABS: Alanine Aminotransferase 27 U/L (0-40); Albumin Level 4.3 g/dL (3.5-5.0); Alkaline Phosphatase 63 U/L (39-117); Anion Gap 13 (12-20); Aspartate Amino Transferase 29 U/L (5-37); Bilirubin Total 0.9 mg/dL (0.0-1.0); Blood Urea Nitrogen 14 mg/dL (9-16); Calcium 8.8 mg/dL (8.4-10.2); Carbon Dioxide 24 mmol/L (22-29); Chloride 110 mmol/L (96-108); Cholesterol 162 mg/dL (<200); Estimated Glomerular Filt Rate > 60; Glucose Fasting 101 mg/dL (60-99); HDL Cholesterol 50 mg/dL (>40); LDL Cholesterol Calculated 86 mg/dL (<100); Potassium 3.8 mmol/L (3.3-5.1); Sodium 143 mmol/L (135-145); Total Protein 6.8 g/dL (6.5-8.0); Triglycerides 134 mg/dL (<150)
[2025-04-11 13:43] LABS: Prostate Specific Antigen Scr 0.82 ng/mL (<0.05-4.0)
[2025-04-11 13:47] LABS: TSH reflex Free T4 1.83 uIU/mL (0.32-4.0)
== END 2025-04-11 09:52 | disposition home or self-care (01) ==
LOC: HO.HMGCLDS 09:51
PROVIDERS: PCP Nurse Practitioner Family; Visit Provider Nurse Practitioner Family
DX: N40.0 Benign prostatic hyperplasia without lower urinary tract symptoms (principal); I10 Essential (primary) hypertension; Z12.5 Encounter for screening for malignant neoplasm of prostate
CPT/HCPCS: 36415; 80053; 80061; 81001; 81003; 84153; 84443; 85025; 87086

== ENCOUNTER 2025-08-22 07:45 | Outpatient (AMB) | payer OTHER, SELFPAY ==
--- OUTSIDE RECORDS SUMMARY | 2025-08-22 07:50 | XMS_ITS | Encounter Summary ---
Author Organization [facility] Address [address] [place] [address] Care Team Providers Care Social Media Content Specialist Name Role Phone Unavailable Primary Care Provider Unavailabl e Encounter Details Date Type Department Care Team (Late st Contact Info) Description 07/31/2024 Scanned Document [facility] Department of Physiatry [place] [address] [place] [phone] Carol Ann Sarmiento MD [address] [place] [address] Social History Tobacco Use Types Packs/Day Years [...]
--- OUTSIDE RECORDS SUMMARY | 2025-08-22 07:50 | XMS_ITS | Encounter Summary ---
Author Organization [facility] Address [address] [place] [address] Care Team Providers Care Inspector Technician Name Role Phone Unavailable Primary Care Provider Unavailabl e Encounter Details Date Type Department Care Team (Late st Contact Info) Description 11/08/2024 Scanned Document [facility] Department of Physiatry [place] [address] [place] [address] Provider, Generic Social History Tobacco [...]
--- OUTSIDE RECORDS SUMMARY | 2025-08-22 07:50 | XMS_ITS ---
Author Name [facility] Organization Unknown History of Medication Use Medication Directions Dispensed Refills Start Date End Date Stat us pregabalin (LYRICA) 50 MG capsule Take 1 capsule (50 mg total) by mouth 3 (three) times a day as needed (neck and arm pain). 11/05/2024 active cyclobenzaprine (FLEXERIL) 10 MG tablet TAKE 1 TABLET ORALLY BEDTIME NEEDED FOR MUSCLE SPASM 10/10/2024 active DULoxetine (CYMBALTA) 30 MG capsule TAKE 1 CAPSULE BY MOUTH NIGHTLY. 08/28/2024 09/19/2024 active diclofenac enteric coated (VOLTAREN) 75 MG EC tablet 1 tablet by Mouth/Oral Cavity route every 12 hours. 07/05/2024 active amLODIPine (NORVASC) 10 MG tablet Take 10 mg by mouth. 06/27/2024 active atorvastatin (LIPITOR) 10 MG tablet Take 10 mg by mouth. 06/27/2024 active tamsulosin (FLOMAX) 0.4 MG capsule Take by mouth. 06/27/2024 active valsartan (DIOVAN) 80 MG tablet Take 80 mg by mouth. 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 active EncounterDiagnosisAct [facility] Neck sprain, sequela active EncounterDiagnosisA ct [facility] Encounters Encounter Type Encounter Reason Primary Diagnosis Location Date Ambulatory [facility] 11/05/2024 Ambulatory [facility] 10/10/2024 Ambulatory Spondylosis without myelopathy or radiculopathy, 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
--- OUTSIDE RECORDS SUMMARY | 2025-08-22 07:50 | XMS_ITS | Clinical Summary ---
Author Organization [facility] Address [address] [place] [address] Care Team Providers Care Hosiery Bagger Name Role Phone Unavailable Primary Care Provider Unavailabl e Allergies No known active allergies Medications amLODIPine (NORVASC) 10 MG tablet Take 10 [...] mouth. 06/27/2024 Active DULoxetine (CYMBALTA) 30 MG capsuleIndicati ons:Bulge of cervical disc without myelopathy TAKE 1 CAPSULE BY MOUTH NIGHTLY. 90 capsule 1 09/19/2024 Active cyclobenzaprine (FLEXERIL) 10 MG tablet TAKE 1 TABLET ORALLY BEDTIME NEEDED FOR MUSCLE SPASM 10/10/2024 Active pregabalin (LYRICA) 50 MG capsuleIndicati ons:Neck sprain, sequela,Bulge of cervical disc without myelopathy Take 1 capsule (50 mg total) by mouth 3 (three) times a day as needed (neck and arm pain). 90 capsule 1 11/05/2024 Active Active Problems No known active problems Family History Medical History Relation Name Comments [...] 50+ (1 of 1 - PCV) 2010 RSV Vaccine 50 years and old er and Patients (1 - Risk 50-74 years 1-dose series) 2010 Zoster (Shingles) Vaccine (1 of 2) 2010 Influenza Vaccine 05/24/2025 COVID-19 Vaccine ( - 2023-2 5 season) 2025 Hepatitis B Vaccines Aged Out No long er eligible based on patient's age to complete this topic Insurance [employer]
--- OUTSIDE RECORDS SUMMARY | 2025-08-22 07:50 | XMS_ITS | Encounter Summary ---
Author Organization [facility] Address [address] [place] [address] Care Team Providers Care Oracle Fusion Middleware Developer Name Role Phone Unavailable Primary Care Provider Unavailabl e Encounter Details Date Type Department Care Team (Late st Contact Info) Description 08/14/2024 Scanned Document [facility] Department of Physiatry [place] [address] [place] [phone] Carol Ann Sarmiento MD [address] [place] [address] Social History Tobacco Use Types Packs/Day Years [...]
--- OUTSIDE RECORDS SUMMARY | 2025-08-22 07:50 | XMS_ITS | Encounter Summary ---
Author Organization [facility] Address [address] [place] [address] Care Team Providers Care Construction Equipment Operator Name Role Phone Unavailable Primary Care Provider Unavailabl e Encounter Details Date Type Department Care Team (Late st Contact Info) Description 02/11/2025 Scanned Document [facility] Department of Physiatry [address] [phone] Gagan Church [place] [address] [place] [address] Social History Tobacco Use Types Packs/Day Years [...]
[2025-08-22 08:06] VITALS: BP 124/78; PULSE 74; RESP 16; O2SAT 98; BMI 34.0
--- NOTE | 2025-08-22 08:06 | MHC.PC.OV ---
Vital Signs 08/22/25 08:06 Height 5 ft 10 in Weight 237 lb BMI 34.0 BP 124/78 Blood Pressure Location Lt brachial Position Sitting Respiration 16 Pulse 74 Pulse Source Pulse Oximeter Pulse Oximetry (%) 98 Oxygen Delivery Method Room Air Intake Visit Reasons: 6m f/u Corporate Safety Manager Required: No Accompanied by: Self / Same As Patient Allergies No Known Allergies Allergy (Verified 01/23/25 16:19) Medication List - Last Reconciled 08/22/25 by SUBHASH AbarcaP- amlodipine 10 mg PO DAILY atorvastatin 10 mg PO DAILY cyclobenzaprine 10 mg PO BEDTIME PRN duloxetine 30 mg PO DAILY pregabalin 50 mg PO 3XD 30 days tamsulosin 0.4 mg PO DAILY valsartan 80 mg PO DAILY Tobacco use date assessed: 08/22/25 Fall risk assessment: No Falls in past year Last assessed Fall Risk: 08/22/25 Dental Screening Dental Screen Date: 08/22/25 Did you have a dental visit in the last 12 months?: Yes Did you have a dental problem in the last 6 months where you did not have access to dental care?: No Was dental information given to patient?: Patient has dentist HPI 6m f/u HPI Details Chief Complaint The patient presents for a follow-up visit for hypertension. History of Present Illness The patient is a 64-year-old male presenting for follow-up for hypertension. His blood pressure is currently stable, and he denies any associated symptoms such as chest pain, shortness of breath, headaches, or blurred vision. The patient has a history of a significant work-related injury from years ago, which is part of an ongoing workman's compensation case. He is currently on pregabalin for this condition. Social History - Employment: The patient has an ongoing workman's compensation case due to a work-related injury that occurred years ago. Health Maintenance Review of Systems - Cardiovascular: Denies chest pain. - Respiratory: Denies dyspnea. - Neurological: Denies headaches. - Eyes: Denies blurred vision. Physical Exam General: Cooperative Orientation: Patient oriented x3 Limitations: No limitations Head: Normal to inspection Ears: Hearing grossly normal bilaterally Nose: Normal external nose present Face and sinus: Normal facial exam Eyes: Appearance normal, both eyes and all related structures Neck: Normal visual inspection and Yes full ROM Respiratory: Normal respiratory effort and able to speak in complete sentences. Clear to auscultation bilaterally Cardiovascular: Regular rate and rhythm. Normal S1 and S2 GI: Normal to inspection. Soft to palpation and nontender Skin: No rashes or lesions noted Neuro: Patient oriented x3 Extremities: Normal to inspection Results Plan 1. Hypertension The patient's hypertension is stable and well-controlled. He will continue his current regimen of valsartan and amlodipine 10 mg, and refills for these medications will be provided. lab orders entered 2. Chronic Pain For chronic pain related to a past work injury, the patient will continue taking pregabalin. A refill for this medication will be provided today. Discussion Notes I confirmed with the patient that his blood pressure is stable and he is not experiencing any chest pain, shortness of breath, headaches, or blurred vision. I have provided refills for his blood pressure medications, valsartan and amlodipine 10 mg, and his pain medication, pregabalin. Patient Instructions - Continue taking your blood pressure medications, which include valsartan and amlodipine 10 mg, as prescribed. - Continue taking your pregabalin for pain as prescribed. - Refills for all your current medications have been sent to your pharmacy. [facility] Medical History Benign prostate hyperplasia Hypertension Surgical History S/P left rotator cuff repair History of total right knee replacement Family History Father No problems noted. Mother No problems noted. Social History Housing: House Alcohol intake: current Alcohol intake frequency: a few times a month Alcohol type: beer Comment: 2-3 per week Patient Tobacco Use Status: Never used Tobacco e-Cigarette/Vaping Use: Never Used service: Yes ([employer]) Current occupational status: employed and unemployed Cognitive needs: No Hearing needs: No Vision needs: Yes Questionnaire PHQ-9 Over the last 2 weeks, how often have you been bothered by any of the following problems? 1. Little interest or pleasure in doing things: not at all 2. Feeling down, depressed, or hopeless: not at all 3. Trouble falling or staying asleep, or sleeping too much: not at all 4. Feeling tired or having little energy: not at all 5. Poor appetite or overeating: not at all 6. Feeling bad about yourself - or that you are a failure or have let yourself or your family down: not at all 7. Trouble concentrating on things, such as reading the newspaper or watching television: not at all 8. Moving or speaking so slowly that other people could have noticed. Or the opposite - being so fidgety or restless that you have been moving around a lot more than usual: not at all Depression Screening Interpretation: Negative Depression Screening Done: Yes 63985 - PHQ-9 Billing: Yes Source: Developed by Drs. Tanmay Lindsay, Mary Glover, Otf Hamilton and colleagues, with an educational kayleigh from [employer]. Thrive Questionnaire Date Thrive assessed: 01/23/25 I am a: Patient What is your living situation today?: I have a steady place to live Within the past 12 months, did the food you bought not last and you didn't have the money to get more?: Never true Within the past 12 months, did you worry whether your food would run out before you got money to buy more?: Never true Do you have trouble paying for medicines?: No Do you have trouble getting transportation to medical appointments?: No Do you have trouble paying your heating and electricity bill?: No Do you have trouble taking care of your child, family member or friend?: No Do you have trouble with day-to-day activities such as bathing, preparing meals, shopping, managing finances, etc.?: No Are you currently unemployed and looking for a job?: No Are you interested in more education?: No Please select the resources that you would like help with: None Currently or been in a relationship where the following occur: No concerns reported THRIVE Score: 0 TITUS-7 AMB Questionnaire TITUS-7 Date TITUS - 7 assessed: 08/22/25 Feeling nervous, anxious, or on edge: 0 = Not at all Not being able to stop or control worryin = Not at all Worrying too much about different things: 0 = Not at all Trouble relaxin = Not at all Being so restless that it is hard to sit still: 0 = Not at all Becoming easily annoyed or irritable: 0 = Not at all Feeling afraid as if something awful might happen: 0 = Not at all Total TITUS-7 score (0-4 normal; 5-9 mild; 10-14 moderate; 15-21 severe): 0 Source: Developed by Drs. Tanmay Lindsay, Mary Glover, Otf Hamilton and colleagues, with an educational kayleigh from [employer]. TITUS-7 Assessment Billing TITUS-7 Assessment Tool: TITUS-7 Assessment 86086 Physical exam (Primary Care) Vital Signs: Last Vital Signs Pulse 74 08/22/25 08:06 Resp 16 08/22/25 08:06 BP 124/78 08/22/25 08:06 Pulse Ox 98 08/22/25 08:06 Oxygen Delivery Method Room Air 08/22/25 08:06 BMI result Body Mass Index 34.0 Tobacco/Smoking Status: Tobacco use Status Tobacco use date assessed 08/22/25 08/22/25 08:12 Patient Tobacco Use Status Never used Tobacco 08/22/25 08:12 e-Cigarette/Vaping Use Never Used 08/22/25 08:12 Depression Screening Interpretation: Negative Thrive Assessment: Date of Thrive Assessment Date Thrive assessed 01/23/25 08/22/25 08:12 Currently or been in a relationship where the following occur: No concerns reported Coding Level of Care Code Est Pt Level 3 (65476) Diagnoses Primary hypertension I10 Hypertension type: primary hypertension Additional Codes TITUS-7 Assessment Billing - TITUS-7 Assessment Tool: TITUS-7 Assessment 47488 ([id number]) PHQ-9 - 73974 - PHQ-9 Billing: Yes ([id number]) Assessment & Plan Assessment & Plan (1) Hypertension: Code(s): I10 - Essential (primary) hypertension Category: Medical Qualifiers: Hypertension type: primary hypertension Qualified Code(s): I10 - Essential (primary) hypertension Plan . Orders: Orders Complete Blood Count Auto Diff Today I10 - Essential (primary) hypertension Comprehensive Likely. Panel Fast Today I10 - Essential (primary) hypertension UA CC w/rflx Micro + Cult Today I10 - Essential (primary) hypertension Lipid Panel Today I10 - Essential (primary) hypertension TSH reflex Free T4 Today I10 - Essential (primary) hypertension Medications: Changed From duloxetine PO DAILY To duloxetine 30 mg PO DAILY 90 caps 0RF From pregabalin PO 3XD To pregabalin 50 mg PO 3XD 90 caps 2RF 30 days Refilled amlodipine 10 mg PO DAILY 90 tabs 1RF cyclobenzaprine 10 mg PO BEDTIME PRN 30 tabs 0RF muscle spasm atorvastatin 10 mg PO DAILY 90 tabs 1RF valsartan 80 mg PO DAILY 90 tabs 1RF
== END 2025-08-22 14:42 | disposition home or self-care (01) ==
LOC: HO.HMCC 07:46
PROVIDERS: PCP Nurse Practitioner Primary Care; Visit Provider Nurse Practitioner Family
DX: I10 Essential (primary) hypertension (principal)

== ENCOUNTER → 2025-08-22 07:45 | Outpatient (BNVA) | payer OTHER, SELFPAY | PROVIDERS: PCP Nurse Practitioner Primary Care; Visit Provider Nurse Practitioner Family | DX: I10 Essential (primary) hypertension (principal); G89.29 Other chronic pain; Z79.899 Other long term (current) drug therapy | CPT/HCPCS: 96127 ==